=== PATIENT | male | born 1980 | race Hispanic/Latino ===

== ENCOUNTER 2023-12-12 16:22 | Outpatient (CLI) | payer BC | END 2023-12-12 16:23 | disposition home or self-care (01) | LOC: SCSRAD 16:22 | PROVIDERS: ATTEND Nurse Practitioner Family | DX: R10.30 Lower abdominal pain, unspecified (principal) | CPT/HCPCS: 74018 ==

== ENCOUNTER 2024-06-12 15:31 | Outpatient (CLI) | payer BC | END 2024-06-12 15:32 | disposition home or self-care (01) | LOC: SCSRAD 15:31 | PROVIDERS: ATTEND Nurse Practitioner Family | DX: R10.30 Lower abdominal pain, unspecified (principal) | CPT/HCPCS: 74018 ==